=== PATIENT | female | born 1980 | race Caucasian/White ===

== ENCOUNTER 2023-10-15 00:44 | Emergency (ER) | payer OTHER ==
[~2023-10-15] VITALS: Ht 182.9 cm; Wt 83.9 kg
[~2023-10-15 00:44] MED LIST: ALPR.5; AZIT250 PO; CIPR500 PO; CYCL10 PO; DEXT30SU PO; DIVA250EC; HYDACE5 PO; HYDACE5325 PO; IBUP400 PO; METR500 PO; NAPR500 PO; OXYACE5T PO; PENVK500 PO; PROM25 PO; Prednisone20 MG PO; RXCYCL10 PO; RXHYD5325 PO; RXOXYACE PO; SERT100 PO; SERT50 PO; VENL150ER; ZOLP5 PO
[2023-10-15 01:03] VITALS: BP 138/92
== END 2023-10-15 01:19 | disposition home or self-care (01) ==
LOC: ER 00:44
DX: F41.9 Anxiety disorder, unspecified (principal); Z88.8 Allergy status to other drugs, medicaments and biological substances; Z79.899 Other long term (current) drug therapy
CPT/HCPCS: 99282